=== PATIENT | female | born 1970 | race Caucasian/White ===

== ENCOUNTER → 2017-04-07 | Outpatient (CLI) | payer OTHER ==
--- NOTE | 2017-04-07 16:53 | KCIC ---
DATE: 04/07/2017 EXAM: MAMMO [facility] SCREENING BILATERAL HISTORY: Routine screening. Baseline. COMPARISON: None FINDINGS: Breast Density: DENSE The breast Parenchyma is dense, which could reduce the sensitivity of mammography. Breast parenchyma level density D.. The skin and nipples are within normal limits. Benign left breast calcifications. Well-circumscribed 3 mm round mass is seen inferior outer right breast approximately at 7:00 position. No suspicious calcifications, spiculated masses or areas of architectural distortion. IMPRESSION: Small round mass (3 mm) in the inferior breast most likely simple cyst. However, confirmation with ultrasound of the right breast recommended. BI-RADS CATEGORY: 0 INCOMPLETE: NEED ADDITIONAL IMAGING EVAULATION AND/OR PRIOR MAMMOGRAMS FOR COMPARISON RECOMMENDED FOLLOW-UP: ADD ADDITIONAL IMAGING. Ultrasound of the inferior right breast at approximately 6:00 - 8:00 position. PQRS compliance statement: Patient information was entered into a reminder system with a target due date for the next mammogram. Mammography is a sensitive method for finding small breast cancers, but it does not detect them all and is not a substitute for careful clinical examination. A negative mammogram does not negate a clinically suspicious finding and should not result in delay in biopsying a clinically suspicious abnormality. "Our facility is accredited by the [employer] Mammography [employer]."
== END | disposition home or self-care (01) ==
LOC: KCIC MAMMO 12:15
PROVIDERS: ATTEND Obstetrics & Gynecology
DX: Z12.31 Encounter for screening mammogram for malignant neoplasm of breast (principal)
CPT/HCPCS: 77063; G0202; 77067

== ENCOUNTER → 2017-04-13 | Outpatient (CLI) | payer OTHER ==
--- NOTE | 2017-04-13 15:06 | RAD ---
Indication well-defined mass seen on mammography. Targeted ultrasound of the right breast was performed. Note is made of the mammogram findings 04/07/2017 and the recommendation for ultrasound. At the 9:00 position of the breast 7 cm from the nipple there is a mass measuring approximately 8 mm most compatible with an intramammary lymph node. At the 8:30 position of the breast 7 cm from the nipple there is a well defined possibly solid mass. It measures approximately 3 mm. The ultrasound features are not ominous and are suggestive of benign disease. IMPRESSION: Probable benign findings on targeted ultrasound of the right breast. A follow-up right breast mammogram and targeted ultrasound is suggested in 6 months to further document stability. BI-RADS 3. Probably benign. Six-month follow-up
== END | disposition home or self-care (01) ==
LOC: KCIC US 13:14
PROVIDERS: ATTEND Obstetrics & Gynecology
DX: R92.8 Other abnormal and inconclusive findings on diagnostic imaging of breast (principal)
CPT/HCPCS: 76641

== ENCOUNTER → 2017-10-30 | Outpatient (CLI) | payer OTHER | END | disposition home or self-care (01) | LOC: US 08:11 | DX: R92.8 Other abnormal and inconclusive findings on diagnostic imaging of breast (principal) | CPT/HCPCS: 76641 ==

== ENCOUNTER → 2017-11-03 | Outpatient (CLI) | payer OTHER | END | disposition home or self-care (01) | LOC: KCIC MAMMO 07:57 | DX: R92.2 Inconclusive mammogram (principal) | CPT/HCPCS: 77065; G0279 ==

== ENCOUNTER → 2019-06-06 | Outpatient (CLI) | payer OTHER ==
--- NOTE | 2019-06-06 10:24 | KCIC ---
Bilateral diagnostic digital mammograms with 3-D tomosynthesis: Reason for examination: Follow-up nodule. Comparison is made to previous studies dated 11/03/2017 and 04/07/2017. Bilateral mammograms in CC and oblique projections were obtained with 2-D imaging and 3-D tomosynthesis imaging on a Siemens Inspiration unit and reviewed on the workstation. Interpretation was made with the benefit of CAD. The skin and nipples show no abnormalities. No abnormal axillary lymph nodes are seen. The breast parenchyma is extremely dense. (Breast density: Category D.) There continue to be 2 small nodular parenchymal density seen in the 6:00 to 6:30 B position of the right breast. There also continues to be some focal nodularity seen in the superior left breast which is unchanged. There are no new dominant masses, suspicious calcifications or architectural distortion. Impression: No change in the small nodular densities at the 6:00 and 6:30 B position of the right breast. Ultrasound to follow. Your patient's mammogram demonstrates that she has dense breast tissue (breast density category C or D), which could hide abnormalities, and if she has other risk factors for breast cancer that have been identified, she might benefit from supplemental screening tests that may be suggested by you as her ordering physician. Dense breast tissue, in and of itself, is a relatively common condition. Therefore, this information is not provided to cause undue concern, but rather to raise your awareness and to promote discussion with your patient regarding the presence of other risk factors, in addition to dense breast tissue. Your patient's mammography results will be sent to her. BI-RAD Category 0: Incomplete. Needs additional imaging evaluation. Right breast ultrasound: Comparison is made to previous studies dated 10/30/2017 and 04/13/2017. Ultrasound examination was performed in the area of mammographic concern and at the right axilla. There continues to be a small hypoechoic fibrocystic type lesion measuring 3 mm in greatest dimension at the 6:30 position 4.5 cm from the nipple. No other discrete cystic or solid lesions are seen. No abnormal appearing lymph nodes are seen in the axilla. IMPRESSION: No change in the 3 mm hypoechoic fibrocystic type lesion at the 6:30 B position. Recommend routine mammographic follow-up. BI-RADS Category 2: Benign. "Our facility is accredited by the [employer] Mammography [employer]." This patient's information has been entered into a reminder system for the patient to be notified with the results of her examination and a target date for the next mammogram. Electronically signed by: Nila Galindo MD (06/06/2019 10:21 AM) [id number]
== END | disposition home or self-care (01) ==
LOC: KCIC MAMMO 08:47
PROVIDERS: ATTEND Internal Medicine
DX: R92.8 Other abnormal and inconclusive findings on diagnostic imaging of breast (principal)
CPT/HCPCS: 76641; 77066; G0279; 77062